=== PATIENT | male | born 1980 | race African-American/Black ===

== ENCOUNTER 2017-11-24 18:02 | Emergency (ER) | payer MEDICAID ==
[~2017-11-24] VITALS: Ht 170.2 cm; Wt 136.1 kg
[2017-11-24 18:20] VITALS: BP 138/87
[2017-11-24] MEDS ORDERED: IBUPROFEN 600 MG TAB PO ONE (21:30)
[2017-11-24] MEDS ORDERED: methylPREDNISolone SOD SUCC 125 MG/2 ML VL IM ONE (21:45)
[2017-11-24] MEDS ORDERED: IPRATROPIUM BROM 0.5 MG/2.5ML INH SOL NEB ONE (21:45)
[2017-11-24] MEDS ORDERED: ALBUTEROL SULF 2.5 MG/0.5ML(0.5%) NEB SOLN NEB ONE (21:45)
== END 2017-11-24 23:29 | disposition home or self-care (01) ==
LOC: ER 18:02
DX: J45.909 Unspecified asthma, uncomplicated (principal)
CPT/HCPCS: 71020; 94640; 96372; 99284; J2930